=== PATIENT | female | born 1950 | race Caucasian/White ===

== ENCOUNTER 2016-12-22 00:31 | Day surgery (SDC) | payer OTHER ==
[~2016-12-22] VITALS: Ht 144.8 cm; Wt 64.0 kg
[2016-12-22] MEDS ORDERED: Sodium Chloride LOK Flush 10 mL Syringe IV PRN (06:00)
[2016-12-22] MEDS ORDERED: fentaNYL-PF 50 mCg/mL 2 mL Inj IVPUSH PRN (06:00)
[2016-12-22] MEDS ORDERED: 0.9% Sodium Chloride 1,000 ML IV SCH (06:00)
[2016-12-22 13:45] VITALS: BP 161/96; PULSE 84; RESP 16; O2SAT 99
[2016-12-22] MEDS ORDERED: CLON0.1T PO (13:45)
[2016-12-22] MEDS ORDERED: MULT-666 PO (13:45)
[2016-12-22 14:39] VITALS: BP 130/75; PULSE 73; RESP 14; O2SAT 96
[2016-12-22 14:48] VITALS: BP 121/76; PULSE 69; RESP 14; O2SAT 95
[2016-12-22 14:57] VITALS: BP 137/69; PULSE 73; RESP 14; O2SAT 99
--- NOTE | 2016-12-22 15:08 | ENDO ---
[address] [address] ENDOSCOPY PROCEDURE PATIENT: ABDI VELA : 1950 MR#: [id number] ADMIT: 12/22/2016 JOB ID: [id number] DATE: 12/22/2016 PROCEDURE: Colonoscopy. INDICATION: Screening. The patient's ASA classification is 2. Mallampati score is 2. MEDICATIONS: 1. Versed 5 mg. 2. Fentanyl 100 mcg. INSTRUMENT USED: PCF H 180 AL. PREPARATION QUALITY: Was good. PROCEDURE DETAILS: After informed consent was obtained, the patient was brought into the GI suite, where she was placed on oxygen via nasal cannula and monitored with continuous pulse oximeter, telemetry and blood pressure monitoring. A time-out was performed. Then, she was placed in the left lateral decubitus position and medications were administered for sedation. Digital rectal examination was performed, which was unremarkable. The colonoscope was then inserted into the rectum and advanced under direct visualization to the cecum, which was identified by the presence of the ileocecal valve and appendiceal orifice. Once the cecum was reached, the colonoscope was withdrawn back into the rectum as mucosa and lumen were examined. In the rectum, retroflexion was performed. Following retroflexion, remaining air in the rectum was suctioned, and procedure was completed. FINDINGS: 1. In the transverse colon, there were two polyps. The larger polyp measured approximately 6 mm and removed with a hot snare. The smaller polyp measuring approximately 3-4 mm removed with cold snare. 2. Scattered diverticula were seen in the left colon. IMPRESSION: 1. Two transverse colon polyps. 2. Scattered left-sided diverticula. RECOMMENDATIONS: 1. Repeat colonoscopy in five years. 2. Avoid nonsteroidal anti-inflammatory drugs and anticoagulants for 72 hours. COMPLICATIONS: None. ESTIMATED BLOOD LOSS: Less than 5 mL.
--- NOTE | 2016-12-26 09:39 | PATH ---
SURGICAL PATHOLOGY Attending Physician:Abdi Lou CASE STATUS: Signed Out PATIENT NAME: ABDI VELA PID: [id number] : 1950 DATE COLLECTED:12/22/2016 00:00 SPECIMEN: Colon, Biopsy CLINICAL HISTORY: 1). 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 The specimen is entirely submitted in one cassette. 12/23/2016 [facility] ICD-9 CODES: CPT CODES: 1: 34759 Electronically Signed Out Ty Ybarra MD [facility] Pathology [facility] [place] [address] Technical component performed at [facility], [facility] [address], [address]
== END 2016-12-22 23:59 | disposition home or self-care (01) ==
LOC: END 00:31
PROVIDERS: ATTEND Internal Medicine Gastroenterology
DX: Z12.11 Encounter for screening for malignant neoplasm of colon (principal); D12.3 Benign neoplasm of transverse colon; K57.30 Diverticulosis of large intestine without perforation or abscess without bleeding; Z83.71 Family history of colonic polyps; I10 Essential (primary) hypertension; J45.998 Other asthma; E78.00 Pure hypercholesterolemia, unspecified; B02.9 Zoster without complications; Z87.891 Personal history of nicotine dependence; Z79.82 Long term (current) use of aspirin; Z79.51 Long term (current) use of inhaled steroids
CPT/HCPCS: 45380; 45385; 99153; G0500; J7030